=== PATIENT | male | born 1935 | race Caucasian/White ===

== ENCOUNTER → 2021-02-07 | Day surgery (SDC) | payer OTHER ==
[2021-02-04 14:34] LABS: BASOPHILS # (AUTO) 0.1 X10'3 (0-0.2); EOSINOPHILS # (AUTO) 0.2 X10'3 (0-0.9); LYMPHOCYTES # (AUTO) 1.5 X10'3 (1.1-4.8); LYMPHOCYTES % (AUTO) 28.8 % (21-51); MEAN CORPUSCULAR HEMOGLOBIN 33.1 PG (27.0-31.0); MEAN CORPUSCULAR HGB CONC 33.8 g/dL (33.0-36.5); MEAN CORPUSCULAR VOLUME 98.2 FL (78-98); MEAN PLATELET VOLUME 9.5 FL (7.4-10.4); MONOCYTES # (AUTO) 0.3 X10'3 (0-0.9); MONOCYTES % (AUTO) 6.7 % (2-12); NEUTROPHILS # (AUTO) 3.1 X10'3 (1.8-7.7); NEUTROPHILS % (AUTO) 60.5 % (42-75); PRE OP HEMOGLOBIN 14.5 g/dL (14.0-17.9); PRE OP PLATELET COUNT 164 X10'3 (140-440); RED BLOOD COUNT 4.38 X10'6 (4.70-6.10); RED CELL DISTRIBUTION WIDTH 13.7 % (11.5-14.5)
[2021-02-04 14:47] LABS: ALBUMIN 3.7 G/DL (3.4-5.0); ALBUMIN/GLOBULIN RATIO 1.1 (1.1-1.5); ALKALINE PHOSPHATASE 62 IU/L (46-116); BLOOD UREA NITROGEN 11 MG/DL (7-18); BUN/CREATININE RATIO 10.2 (5.4-32.0); CALCIUM 9.3 MG/DL (8.5-10.1); CHLORIDE 106 MMOL/L (99-107); CREATININE 1.08 MG/DL (0.60-1.10); PRE OP ALT 39 U/L (30-65); PRE OP ANION GAP 11 (8-16); PRE OP AST 23 U/L (10-37); PRE OP BILIRUB, TOTAL 0.6 MG/DL (0.0-1.0); PRE OP GLUCOSE 83 MG/DL (70-104); PRE OP POTASSIUM 3.8 MMOL/L (3.4-5.1); PRE OP SODIUM 145 MMOL/L (135-145); TOTAL CARBON DIOXIDE 28.3 MMOL/L (24-32); eGFR 65 ML/MIN
[~2021-02-07] VITALS: Ht 185.4 cm; Wt 93.8 kg
[2021-02-07] VITALS (19 sets, daily range): BP systolic 103–150; BP diastolic 62–87
[~2021-02-07] MED LIST: ACET325T57 PO; BUPIVAcaine/PF 2.5 mg/ml (0.25%) 30ml vial ONE; CHOL400T8 PO; CLOP75TA15 PO; DOXA2TAB46 PO; GABA800T11 PO; HYDROcodone/acetaminophen 5mg/325mg tablet PO PRN; LIDOcaine 1% 30ml preserv. free vial ONE; LIDOcaine 2% (20mg/ml) 5ml vial ONE; LISI40TA13 PO; PSYL1000 PO; SIMV5TAB58 PO; cefazolin/dext.iso 2gm/100ml IV ONE; dexamethasone sod phosphate 4mg/ml inj. ONE; ePHEDrine 50MG/ML INJ. ONE; famotidine 20mg tablet PO ONE; fentaNYL/PF 50MCG/1 ML 2ML syringe IV PRN; fentaNYL/PF 50MCG/1 ML 2ML syringe ONE; glycopyrrolate 0.2mg/ml inj ONE; hydrALAZINE 20mg/ml inj. IV PRN; labetalol 20mg/4ml (5mg/ml) syringe IV PRN; midazolam 1 mg/ML 2ml injection ONE; morphine 2 MG/ML inj. syringe IV PRN; morphine 4 MG/ML inj SYRINge IV PRN; naloxone 0.4 mg/ml inj ONE; ondansetron/PF 4mg/2ml inj IV PRN; ondansetron/PF 4mg/2ml inj ONE; phenylephrine 10mg/ml inj. ONE; propofol inj 20 ML IV ONE; ringers solution, lacted 1,000 ML IV SCH; rocuronium 10mg/ml inj IV ONE; sevoflurane 250ml liquid IH ONE
[2021-02-07 09:41] LABS: PRE OP INR 1.2 INR; PRE OP PROTIME 12.3 SECONDS (9.0-12.0)
--- NOTE | 2021-02-07 12:53 | NUR ---
Received from OR via [facility] , accompanied by Anesthesiologist ESME and report given by Anesthesiolgist. PATIENT WITH 20G PIV IN LEFT UE RUNNING LR AT 100, 3 ABDOMINAL LAP SITES THAT ARE GLUED SHUT. VSS. 10L MASK ON WITH 100% SATURATIONS. Addendum: 02/07/21 at 1303 by Suman Almonte RN, RN Amended: Links added.
--- NOTE | 2021-02-07 15:20 | NUR ---
POST VOID BLADDER SCAN REVEALS 308 RESIDUAL URINE Addendum: 02/07/21 at 1523 by Suman Almonte RN RN Amended: Links added.
--- NOTE | 2021-02-07 16:13 | NUR ---
ALL DISCHARGE CRITERIA HAS BEEN MET. VSS, PAIN AT A TOLERABLE LEVEL, VOIDING AND ABLE TO SAFELY AMBULATE AND TRANSFER SELF. IV TAKEN OUT WITHOUT ANY COMPLICATIONS. ALL DISCHARGE INSTRUCTIONS COVERED WITH PATIENT AND ALL QUESTIONS ANSWERED. PATIENT TAKEN OUT VIA WHEELCHAIR TO PERSONAL VEHICLE WHERE FAMILY/FRIEND DROVE PATIENT HOME. PATIENT GIVEN OPTION OF STRAIGHT CATH VS RIDER CATHETER. PATIENT HAS BEEN VOIDING WITH GOOD STREAM HOWEVER RESIDUAL BLADDER SCAN REVEALS 328 ML. PATIENT AGREES TO THE STRAIGHT CATH AND RETRIEVED 800 CC. PATIENT SENT HOME WITH INSTRUCTIONS THAT IF HE HAS NOT VOIDED IN 8 HRS. (MIDNIGHT) TO COME Lashae STUART TO THE ER FOR CATHETER PLACEMENT. MD SIMON IN AGREEMENT WITH THIS PLAN. TAKEN HOME BY GARY. Addendum: 02/07/21 at 1618 by Suman Almonte RN, RN Amended: Links added.
== END | disposition home or self-care (01) ==
LOC: PAS 08:10
PROVIDERS: ATTEND Surgery
DX: K40.90 Unilateral inguinal hernia, without obstruction or gangrene, not specified as recurrent (principal); G89.29 Other chronic pain; I10 Essential (primary) hypertension; M85.80 Other specified disorders of bone density and structure, unspecified site; E83.119 Hemochromatosis, unspecified; G62.9 Polyneuropathy, unspecified; N40.0 Benign prostatic hyperplasia without lower urinary tract symptoms; Z88.8 Allergy status to other drugs, medicaments and biological substances; Z79.899 Other long term (current) drug therapy; Z79.01 Long term (current) use of anticoagulants; Z87.891 Personal history of nicotine dependence; Z98.890 Other specified postprocedural states
CPT/HCPCS: 36415; 49650; 80053; 82948; 85025; 85610; 93005; C1781; J1100; J2001; J2250; J2310; J2370; J2405; J2704; J3010; J3490; J7120; A4215; A4618